=== PATIENT | male | born 2000 | race Caucasian/White ===

== ENCOUNTER → 2022-10-21 08:07 | Outpatient (CLI) | payer OTHER, SELFPAY ==
--- NOTE | 2022-10-21 | DI.RAD.S_ITS ---
PROCEDURE: FL SHOULDER INJECTION MR/CT RT INDICATIONS: RIGHT SHOULDER PAIN COMPARISON: None. TECHNIQUE: The indications, alternatives, benefits, risks, and complications of the procedure were explained to the patient. Written informed consent was obtained and placed in the chart. The shoulder was examined fluoroscopically and a site for needle placement chosen for entry into the glenohumeral joint from an anterior approach. The skin was prepped and draped in a sterile fashion, and 1% lidocaine infiltrated from skin down to joint capsule. A spinal needle was inserted into the glenohumeral joint, and a small amount of iodinated contrast media injected to confirm intra-articular placement of the needle tip. This was followed by approximately 12 mL dilute solution of a gadolinium containing MR contrast agent. The needle was removed and a dressing was applied. The patient was given postprocedural instructions and sent to the MR suite for MR imaging. FINDINGS: A single fluoroscopic spot image demonstrates intra-articular location of injected iodinated contrast. IMPRESSION: Successful fluoroscopically guided administration of dilute Gadolinium solution into the shoulder joint for MR arthrogram. Dictated by: Haris Marquis M.D. on 10/21/2022 at 9:00 Approved by: Haris Marquis M.D. on 10/21/2022 at 9:01
--- NOTE | 2022-10-21 | DI.MRI.S_ITS ---
PROCEDURE: MR SHOULDER RT W CON INDICATIONS: RIGHT SHOULDER PAIN TECHNIQUE: After the administration of 12 mL of dilute intra-articular Gadolinium contrast, oblique coronal T1 and T2 spin echo with fat saturation, oblique sagittal T1 spin echo with and without fat saturation, oblique sagittal T2 fast spin echo with fat saturation, axial T1 spin echo with fat saturation through the shoulder. COMPARISON: None. FINDINGS: Image quality: Excellent. Rotator cuff: There is distal supraspinatus and subscapularis tendinosis. The infraspinatus tendon is intact. No rotator cuff tendon rupture. No rotator cuff muscle atrophy on sagittal images. Bones and bursae: Subacute appearing Hill-Sachs deformity involving posterior lateral humeral head is seen with mild marrow edema. No corresponding Bankart fracture. No acromioclavicular joint degeneration. The acromion demonstrates conventional anatomy, without an os acromiale. Capsule and soft tissues: There is signal abnormality and contour irregularity involving anterior inferior labrum with contrast extension at 4 to 6 o'clock position suggestive of anterior inferior labral tear. The glenohumeral ligaments appear intact. The long head of the biceps tendon demonstrates normal location and morphology. The rotator interval appears normal, without fibrosis. The coracohumeral ligament is of normal thickness. No intra-articular bodies. IMPRESSION: 1. Subacute appearing Hill-Sachs deformity involving posterior lateral humeral head. No Bankart fracture. No intra-articular loose bodies. 2. Suggestion of anterior-inferior labral tear at 4 to 6 o'clock position. 3. Distal supraspinatus and subscapularis tendinosis. No rotator cuff tendon rupture. Dictated by: Pito Ojeda M.D. on 10/21/2022 at 10:06 Approved by: Pito Ojeda M.D. on 10/21/2022 at 10:10
== END ==
PROVIDERS: PCP Student in an Organized Health Care Education/Training Program; Referring Provider Student in an Organized Health Care Education/Training Program; Visit Provider Student in an Organized Health Care Education/Training Program
DX: S42.294A Other nondisplaced fracture of upper end of right humerus, initial encounter for closed fracture (principal); S43.004A Unspecified dislocation of right shoulder joint, initial encounter; W19.XXXA Unspecified fall, initial encounter
CPT/HCPCS: 23350; 73222; 77002

== ENCOUNTER 2023-04-08 08:53 | Day surgery (SDC) | payer OTHER, SELFPAY ==
[2023-04-06 15:14] VITALS: BMI 29.4
--- NOTE | 2023-04-08 12:49 | P.HP_ITS ---
History of Present Illness History of Present Illness Date Patient Seen: 04/08/23 Time Patient Seen: 12:49 Chief complaint: Right Arthroscopy Shoulder/Labral Repair Narrative: This is a 23-year-old male who presents to me today for operative treatment of his right shoulder instability. He has had instability since a anais dislocation. He has apprehension raising his arm over his head. Denies any recent changes since I last saw him in December. [facility] Medical History (Updated 04/06/23 @ 15:20 by Alicia Tapia RN) Recurrent dislocation, right shoulder Headache Asthma Depression Social History household members: spouse Smoking Status: Never smoker alcohol intake: current Meds Home Medications and Allergies Home Medications Medication Instructions Recorded Confirmed Type albuterol sulfate 90 mcg/actuation 2 puff inhalation Q4-6H PRN 04/06/23 04/08/23 History aerosol inhaler Shortness Of Breath escitalopram oxalate 10 mg tablet 10 mg PO DAILY 04/06/23 04/08/23 History (Lexapro) Allergies Allergy/AdvReac Type Severity Reaction Status Date / Time Penicillins AdvReac Unknown Verified 04/08/23 12:56 Review of Systems Review of Systems ROS: Yes All systems reviewed with the patient and are negative except as otherwise documented Exam Narrative Exam Narrative: HEENT: Head atraumatic eyes anicteric moist mucous membranes Cardiovascular: Palpable peripheral pulses extremities are warm and well perfused Respiratory: Breathing comfortably on room air Psychiatric: Appropriate mood and affect Neuro: No acute deficits Musculoskeletal: Exam of the right upper extremity demonstrates apprehension with any elevation over 90? did not externally rotate past 30? due to his known apprehension. Sensation intact to light touch in median, radial, ulnar, axillary nerve distribution. 2+ radial pulse with a brisk capillary refill less than 2 seconds. Assessment & Plan Assessment & Plan narrative: Assessment: 23-year-old male with right shoulder instability after a shoulder dislocation Plan: We discussed indications for operative management including a Bankart repair and remplissage. Risks and benefits of surgery were discussed again including the risk of infection, damage to internal structures, bleeding, nerve injury, instability, need for revision surgery, blood clots, anesthesia and . No guarantees were made regarding outcomes. Patient expressed understanding and accepted these risks and wished to go forward with surgery and consent was signed.
[2023-04-08 12:59] VITALS: BMI 29.4
[2023-04-08] MEDS: TRANEXAMIC ACID 1,000 MG VIAL 1000 MG INJ (13:00)
[2023-04-08] MEDS: LACTATED RINGERS 1,000 ML 42 ML IV (13:16)
[2023-04-08 13:17] VITALS: BP 123/74; PULSE 80; RESP 15; TEMP 37; O2SAT 99
--- NOTE | 2023-04-08 13:30 | SUR.PREOP ---
Block start time [1324] . Monitoring initiated and maintained throughout procedure. Oxygen and medications given per anesthesiologist instructions. Patient remained stable throughout procedure, no adverse reactions noted. Block end time [1327]. Time out 1321
[2023-04-08] MEDS: CEFAZOLIN 2 GM/100 ML PREMIX 100 ML IV (13:32)
--- NOTE | 2023-04-08 14:10 | SUR.OPER ---
Lateral on padded OR bed with machado bag positioner, head on pillow, gel axillary roll in place, bottom leg bent with gel pad under knee to foot, upper leg straight and supported with pillows. Operative arm secured in shoulder positioning suspension device. non-operative arm secured on padded arm board. Safety belt at hip, tape over blanket securing lower legs.
[2023-04-08] MEDS: SODIUM CHLORIDE IRRIG SOLUTION 3,000 ML, EPINEPHrine 1 MG IRR (14:25)
[2023-04-08] MEDS: BUPIVACAINE 0.5% (PF) 30 ML VIAL INJ (14:30)
[2023-04-08 15:28] VITALS: BP 118/50; PULSE 84; RESP 16; TEMP 36.4; O2SAT 98
[2023-04-08 15:33] VITALS: BP 110/84; PULSE 81; RESP 17; O2SAT 97
[2023-04-08 15:38] VITALS: BP 111/67; PULSE 75; RESP 18; TEMP 36.3; O2SAT 95
[2023-04-08 15:43] VITALS: BP 112/51; PULSE 75; RESP 18; O2SAT 94
--- NOTE | 2023-04-08 15:46 | PM.OP.1 ---
Operative Date/Time/Diagnoses Date of procedure: 04/08/23 Time of procedure: 15:46 Pre-op diagnosis: Right shoulder instability Post-op diagnosis: same Procedure & Clinicians Procedure: Right Bankart repair and remplissage Same procedure as scheduled: Yes Indications: This is a 23-year-old male Who has shoulder instability after dislocation. MRI demonstrates a anterior labral tear. In order to prevent further dislocations into decrease the risk of arthritis we discussed performing arthroscopic Bankart repair with possible remplissage. Risks were again discussed with the patient and they wished to go forward with surgery. Surgeon: Camacho Cheek Document Reviewer: Angus Francis Anesthesia Type: General Operative Notes Findings: Findings: Exam under anesthesia:Subluxation over the rim anteriorly which is reducible. No instability posteriorly Biceps long head: Intact sling, normal attachment to the anchor. Subscapularis: Intact Rotator cuff: Intact without any undersurface tearing noted Inferior capsule: Intact and attached to the glenoid and humeral head Glenoid cartilage: No chondromalacia, no anterior bone loss noted Humeral head: Smooth and intact,small flat Hill-Sachs lesion noted Anterior labrum: Tear noted from 6 o'clock to 2 o'clock Closure Type: primary Specimen(s): none sent Prosthetic devices, grafts, tissues, transplants, or devices: Implants: Arthrex 1.8 mm knotless FiberTak x 6 Push lock x1 Estimated Blood Loss (mL): 10 Procedure in detail: Description of procedure: The patient was seen and evaluated in the preoperative holding area where the risks, benefits, and alternatives of the surgery were discussed. Risks include bleeding, infection, damage to neurovascular structures including the axillary nerve, blood clots including pulmonary embolism, worsening of pain, stiffness, swelling, failure of the surgery, recurrent instability and the need for future surgery. No guarantees were made regarding outcomes. They consented to surgery and the correct operative extremity was marked with my initials. The patient was then brought to the operating room and underwent smooth induction of anesthesia. Patient was placed in the lateral position with the right upper extremity facing up. An axillary roll was placed and all bony prominences were padded and the beanbag was suctioned. 2 g of Ancef were delivered intravenously. The right upper extremity was prepped and draped in the standard sterile fashion. The arm was placed in the suspension device with 10 lb of weight. A time-out was then performed in my initials were again confirmed. A standard posterior portal was then established and an anterior inferior portal was established using a gentleman I. Last a viewing portal was established just posterior to the biceps long head tendon. A diagnostic scope was performed noting the above findings. A 7 mm cannula was used for the posterior and viewing portals. Without breaching the posterior capsule with a cannula, 2 separate all suture knotless anchors were placed into the Hill-Sachs lesion using our posterior portal incision. The sutures were kept separate from each other and snapped, saved to be used at the end of the case. A liberator was used through the anterior working portal to elevate the anterior labrum and capsule off of the anterior glenoid. A ring curette was used to freshen up the edges of the cartilage. Using a 1.8 mm Arthrex knotless FiberTak system we began inferiorly using a curved guide starting between 7 and 6 o'clock. The 1st anchor was placed in a SutureLasso was used to take the passing suture around the labrum and capsule. This was then tightened down through the anterior working portal using the knotless system. This process was repeated at 5, 4 and 3 o'clock ending at the height of upper border of the subscapularis Last, we turned our attention back to the remplissage repair. A passing suture from each anchor it was run through the other anchor and then tightened, creating a repair on the outside of the capsule and filling in the Hill-Sachs lesion. This proved to be a good repair and the head was noted to be centered over the glenoid at the end of the case. The shoulder was suctioned dry and the arthroscope was removed. 15 cc of Marcaine were placed into the joint. Portals were then closed with Monocryl and dressed with Xeroform, 4x4s and ABDs. Patient was placed into a sling and woken from anesthesia. Attending/marketing communications assistant participation: This operation could not have been safely performed (without compromising the technical results or length of the procedure) without the assistance of a skilled instructor adjunct surgical technician. The instructor adjunct surgical technician was medically necessary for proper positioning, retraction and manipulation of instruments, proper exposure and manipulation of tissue. Complications: none Post-operative Condition: stable Disposition: PACU Plan for aftercare: Postoperative instructions: Sling to remain on for 6 weeks. Patient may remove dressings after postoperative day 3, and allow soap and water to run over the incisions in the shower. Placed Band-Aids over the incisions for at least 2 more days. First postoperative visit in 2 weeks, 2nd postoperative visit in 6 weeks.
[2023-04-08 15:49] VITALS: BP 110/66; PULSE 71; RESP 17; O2SAT 93
== END 2023-04-08 16:26 | disposition home or self-care (01) ==
PROVIDERS: PCP Student in an Organized Health Care Education/Training Program; Referring Provider Orthopaedic Surgery; Visit Provider Orthopaedic Surgery
PROC: 0RQJ4ZZ Repair Right Shoulder Joint, Percutaneous Endoscopic Approach (ICD-10-PCS; CPT 29807; principal; 2023-04-08 13:15)
DX: S43.431A Superior glenoid labrum lesion of right shoulder, initial encounter (principal); M24.411 Recurrent dislocation, right shoulder; G89.18 Other acute postprocedural pain
CPT/HCPCS: 29807; 64415; J0171; J0330; J0690; J1100; J2405; J2704